=== PATIENT | female | born 1955 | race Caucasian/White ===

== ENCOUNTER → 2021-05-12 | Outpatient (CLI) | payer BC ==
--- NOTE | 2021-05-12 12:16 | US ---
EXAMINATION TYPE: US abdomen complete DATE OF EXAM: 05/12/2021 COMPARISON: NONE CLINICAL HISTORY: 65-year-old female R10.84 Generalized abdominal pain. Intermittent pelvic pain x co uple months TECHNIQUE: Multiple sonographic images of the abdomen are obtained. FINDINGS: EXAM MEASUREMENTS: Liver Length: 14.7 cm Gallbladder Wall: 0.2 cm CBD: 0.5 cm Spleen: 9.7 cm Right Kidney: 10.9 x 6.3 x 5.7 cm Left Kidney: 12.0 x 4.6 x 5.4 cm Pancreas: Portions of the pancreatic head and neck are seen. Most of the body and tail are obscured by bowel gas shadowing. Liver: No focal lesion. Overall homogeneous appearance. Somewhat large body habitus resulting in kathrin e attenuation. Gallbladder: No abnormal distention, wall thickening, pericholecystic fluid, or shadowing calculi. Evidence for sonographic Hernandez's sign: no CBD: wnl Spleen: visualized portions wnl, limited by overlying bowel gas Right Kidney: wnl Left Kidney: wnl Upper IVC: wnl Abd Aorta: proximal portion limited by overlying midline bowel gas, mid and distal appear wnl IMPRESSION: Suboptimal visualization of the pancreas. Otherwise, unremarkable sonographic examination of the abdo men.
--- NOTE | 2021-05-12 12:20 | US ---
EXAMINATION TYPE: US transvaginal DATE OF EXAM: 05/12/2021 COMPARISON: NONE CLINICAL HISTORY: 65-year-old female R10.84 Generalized abdominal pain. Intermittent pelvic pain x co uple months, 8, para 5, miscarriage 3, history of TECHNIQUE: Transvaginal exam only per ordering physician Date of LMP: 2011 Findings: 1. Uterus: surgically absent 2. Endometrium: surgically absent 3. Right Ovary: surgically absent 4. Left Ovary: surgically absent 5. Bilateral Adnexa: wnl 6. Posterior cul-de-sac: wnl IMPRESSION: Status post hysterectomy and bilateral salpingo-oophorectomies. No pelvic free fluid or evident adnex al abnormality.
== END | disposition home or self-care (01) ==
LOC: RADUSWWP 08:41
PROVIDERS: ATTEND Internal Medicine
DX: R10.84 Generalized abdominal pain (principal); R10.2 Pelvic and perineal pain; Z90.710 Acquired absence of both cervix and uterus; Z90.722 Acquired absence of ovaries, bilateral
CPT/HCPCS: 76700; 76830

== ENCOUNTER 2021-10-02 09:38 | Emergency (ER) | payer BC, MEDICARE ==
[2021-10-02 10:08] VITALS: RESP 18
[2021-10-02] MEDS ORDERED: ASPIRIN 81 MG PO STA (10:19)
[2021-10-02] MEDS ORDERED: NITROGLYCERIN OINT 1 INCH/GM PACKET TOPICAL STA (10:19)
--- NOTE | 2021-10-02 10:22 | ED ---
General Adult HPI - General Chief complaint: Chest Pain Stated complaint: cardiac Time Seen by Provider: 10/02/21 09:50 Source: patient, RN notes reviewed, old records reviewed Mode of arrival: ambulatory Limitations: no limitations - History of Present Illness Initial comments: This is a 60 sutural female with past medical history significant for high blood pressure and a strong family history for heart disease. Patient states yesterday at work about 5:00 she was just talking to a coworker and all of a sudden she felt this is a severe squeezing in her chest and then started to release and she became extremely diaphoretic and thought she was going to pass out. Patient states once the lightheadedness resolved she drove herself home she has a special needs child and she couldn't come to the hospital. Patient states the pain only lasted a few seconds but the sweating lasted minutes. Patient states that this morning she was thinking about it still made her very nervous so she came into the hospital to be evaluated. Patient has had no chest pain or difficulty breathing since the original event. Patient denies any fever chills or cough. Patient denies any abdominal pain patient denies nausea vomiting diarrhea. - Related Data Home Medications Medication Instructions Recorded Confirmed Aspirin EC [Ecotrin Low Dose] 81 mg PO DAILY 10/02/21 10/02/21 Labetalol HCl 100 mg PO DAILY 10/02/21 10/02/21 Levothyroxine Sodium 112 mcg PO DAILY 10/02/21 10/02/21 Pantoprazole Sodium [Protonix] 40 mg PO DAILY 10/02/21 10/02/21 Rosuvastatin Calcium 20 mg PO DAILY 10/02/21 10/02/21 buPROPion XL [Wellbutrin XL] 150 mg PO DAILY 10/02/21 10/02/21 Allergies Allergy/AdvReac Type Severity Reaction Status Date / Time No Known Allergies Allergy Verified 10/02/21 11:05 Review of Systems ROS Statement: Those systems with pertinent positive or pertinent negative responses have been documented in the HPI. ROS Other: All systems not noted in ROS Statement are negative. Past Medical History Past Medical History: Hypertension Past Surgical History: No Surgical Hx Reported Past Psychological History: No Psychological Hx Reported Smoking Status: Never smoker Past Alcohol Use History: None Reported Past Drug Use History: None Reported General Exam - General Exam Comments Initial Comments: GENERAL: Patient is well-developed and well-nourished. Patient is nontoxic and well- hydrated and is in no acute distress. ENT: Neck is soft and supple. No significant lymphadenopathy is noted. Oropharynx is clear. Moist mucous membranes. Neck has full range of motion without eliciting any pain. EYES: The sclera were anicteric and conjunctiva were pink and moist. Extraocular movements were intact and pupils were equal round and reactive to light. Eyelids were unremarkable. PULMONARY: Unlabored respirations. Good breath sounds bilaterally. No audible rales r honchi or wheezing was noted. CARDIOVASCULAR: There is a regular rate and rhythm without any murmurs gallops or rubs. ABDOMEN: Soft and nontender with normal bowel sounds. No palpable organomegaly was noted. There is no palpable pulsatile mass. SKIN: Skin is clear with no lesions or rashes and otherwise unremarkable. NEUROLOGIC: Patient is alert and oriented x3. Cranial nerves II through XII are grossly intact. Motor and sensory are also intact. Normal speech, volume and content. Symmetrical smile. MUSCULOSKELETAL: Normal extremities with adequate strength and full range of motion. No lower extremity swelling or edema. No calf tenderness. LYMPHATICS: No significant lymphadenopathy is noted PSYCHIATRIC: Normal psychiatric evaluation. Limitations: no limitations Course Vital Signs 10/02/21 10/02/21 09:48 10:07 Temperature 98 F Pulse Rate 70 66 Respiratory 20 18 Rate Blood Pressure 128/80 124/91 O2 Sat by Pulse 97 95 Oximetry Medical Decision Making - Medical Decision Making EKG shows sinus rhythm at 69 bpm MA interval 147 QRSs 141 QT interval 490 QTC is 468. Patient's EKG shows a right bundle branch block. EKG shows no ST segment elevation. There is no old EKG to compare to Patient states she had a cardiac catheterization a couple of years ago and they said there was only some plaque Chest x-ray shows no acute abnormality. Patient had no symptoms while in the emergency. I told the patient that we keep her overnight she preferred to go home and follow-up as an outpatient. - Lab Data Result diagrams: 10/02/21 10:23 10/02/21 10:23 Lab Results 10/02/21 10/02/21 10/02/21 Range/Units 10:23 10:23 10:23 WBC 6.1 (3.8-10.6) k/uL RBC 4.56 (3.80-5.40) m/uL Hgb 12.6 (11.4-16.0) gm/dL Hct 38.9 (34.0-46.0) % MCV 85.1 (80.0-100.0) fL MCH 27.7 (25.0-35.0) pg MCHC 32.5 (31.0-37.0) g/dL RDW 13.4 (11.5-15.5) % Plt Count 251 (150-450) k/uL MPV 6.8 Neutrophils % 48 % Lymphocytes % 37 % Monocytes % 8 % Eosinophils % 3 % Basophils % 1 % Neutrophils # 3.0 (1.3-7.7) k/uL Lymphocytes # 2.3 (1.0-4.8) k/uL Monocytes # 0.5 (0-1.0) k/uL Eosinophils # 0.2 (0-0.7) k/uL Basophils # 0.0 (0-0.2) k/uL PT 10.6 (9.0-12.0) sec INR 1.0 (<1.2) APTT 23.1 (22.0-30.0) sec Sodium 138 (137-145) mmol/L Potassium 4.3 (3.5-5.1) mmol/L Chloride 106 (98-107) mmol/L Carbon Dioxide 26 (22-30) mmol/L Anion Gap 6 mmol/L BUN 24 H (7-17) mg/dL Creatinine 0.77 (0.52-1.04) mg/dL Est GFR (CKD-EPI)AfAm >90 (>60 ml/min/1.73 sqM) Est GFR (CKD-EPI)NonAf 81 (>60 ml/min/1.73 sqM) Glucose 102 H (74-99) mg/dL Calcium 9.5 (8.4-10.2) mg/dL Magnesium 1.8 (1.6-2.3) mg/dL Total Bilirubin 0.4 (0.2-1.3) mg/dL AST 22 (14-36) U/L ALT 16 (4-34) U/L Alkaline Phosphatase 38 (38-126) U/L Troponin I (0.000-0.034) ng/mL Total Protein 6.9 (6.3-8.2) g/dL Albumin 4.4 (3.5-5.0) g/dL 10/02/21 Range/Units 10:23 WBC (3.8-10.6) k/uL RBC (3.80-5.40) m/uL Hgb (11.4-16.0) gm/dL Hct (34.0-46.0) % MCV (80.0-100.0) fL MCH (25.0-35.0) pg MCHC (31.0-37.0) g/dL RDW (11.5-15.5) % Plt Count (150-450) k/uL MPV Neutrophils % % Lymphocytes % % Monocytes % % Eosinophils % % Basophils % % Neutrophils # (1.3-7.7) k/uL Lymphocytes # (1.0-4.8) k/uL Monocytes # (0-1.0) k/uL Eosinophils # (0-0.7) k/uL Basophils # (0-0.2) k/uL PT (9.0-12.0) sec INR (<1.2) APTT (22.0-30.0) sec Sodium (137-145) mmol/L Potassium (3.5-5.1) mmol/L Chloride (98-107) mmol/L Carbon Dioxide (22-30) mmol/L Anion Gap mmol/L BUN (7-17) mg/dL Creatinine (0.52-1.04) mg/dL Est GFR (CKD-EPI)AfAm (>60 ml/min/1.73 sqM) Est GFR (CKD-EPI)NonAf (>60 ml/min/1.73 sqM) Glucose (74-99) mg/dL Calcium (8.4-10.2) mg/dL Magnesium (1.6-2.3) mg/dL Total Bilirubin (0.2-1.3) mg/dL AST (14-36) U/L ALT (4-34) U/L Alkaline Phosphatase (38-126) U/L Troponin I <0.012 (0.000-0.034) ng/mL Total Protein (6.3-8.2) g/dL Albumin (3.5-5.0) g/dL Disposition Clinical Impression: Atypical chest pain Disposition: HOME SELF-CARE Instructions (If sedation given, give patient instructions): Chest Pain (ED) Additional Instructions: Patient should return if these symptoms return or if there are any new symptoms. Patient should follow up with cardiology as soon as possible. Is patient prescribed a controlled substance at d/c from ED?: No Referrals: Melissa Mendez MD [Primary Care Provider] - 1-2 days Time of Disposition: 11:25
[2021-10-02 10:47] LABS: Basophils % (A) 1 %; Eosinophils # (A) 0.2 k/uL (0-0.7); Eosinophils % (A) 3 %; HCT 38.9 % (34.0-46.0); HGB 12.6 gm/dL (11.4-16.0); Lymphocytes # (A) 2.3 k/uL (1.0-4.8); Lymphocytes % (A) 37 %; MCH 27.7 pg (25.0-35.0); MCHC 32.5 g/dL (31.0-37.0); MCV 85.1 fL (80.0-100.0); Mean Platelet Volume 6.8; Monocytes # (A) 0.5 k/uL (0-1.0); Monocytes % (A) 8 %; Neutrophils % (A) 48 %; Platelet Count 251 k/uL (150-450); RBC 4.56 m/uL (3.80-5.40); RDW 13.4 % (11.5-15.5); WBC 6.1 k/uL (3.8-10.6)
[2021-10-02 11:01] LABS: ALT 16 U/L (4-34); AST 22 U/L (14-36); African American GFR (CKD) >90 (>60 ml/min/1.73 sqM); Albumin 4.4 g/dL (3.5-5.0); Alkaline Phosphatase 38 U/L (38-126); Anion Gap 6 mmol/L; Blood Urea Nitrogen 24 mg/dL (7-17); Calcium 9.5 mg/dL (8.4-10.2); Carbon Dioxide 26 mmol/L (22-30); Chloride 106 mmol/L (98-107); Glucose 102 mg/dL (74-99); Magnesium 1.8 mg/dL (1.6-2.3); Non-African American GFR(CKD) 81 (>60 ml/min/1.73 sqM); Potassium 4.3 mmol/L (3.5-5.1); Sodium 138 mmol/L (137-145); Total Bilirubin 0.4 mg/dL (0.2-1.3); Total Protein 6.9 g/dL (6.3-8.2)
[2021-10-02 11:04] LABS: Partial Thromboplastin Time 23.1 sec (22.0-30.0); Prothrombin Time 10.6 sec (9.0-12.0)
--- NOTE | 2021-10-02 11:08 | XR ---
EXAMINATION TYPE: XR chest 2V DATE OF EXAM: 10/02/2021 COMPARISON: NONE HISTORY: Chest pain. TECHNIQUE: Frontal and lateral views of the chest are obtained. FINDINGS: There is underlying S-shaped scoliosis which is dextroconvex in curvature centered in the lower thoracic spine. Cardiac silhouette size is upper limits of normal. No suspicious focal airspace opacity, pleural effusion, or pneumothorax seen bilaterally. Overlying EKG leads are present. IMPRESSION: No acute process.
[2021-10-02 12:06] VITALS: BP 111/67; PULSE 60; TEMP 98.1
== END 2021-10-02 12:07 | disposition home or self-care (01) ==
LOC: EC 09:38
DX: R07.89 Other chest pain (principal); Z79.82 Long term (current) use of aspirin; Z79.899 Other long term (current) drug therapy
CPT/HCPCS: 36415; 71046; 80053; 83735; 84484; 85025; 85610; 85730; 93005; 99284